=== PATIENT | male | born 1970 | race Caucasian/White ===

== ENCOUNTER → 2019-06-20 | Outpatient (CLI) | payer BC ==
--- NOTE | 2019-06-20 14:03 | CT ---
EXAMINATION TYPE: CT abdomen pelvis w con DATE OF EXAM: 06/20/2019 COMPARISON: None. HISTORY: Left lower quadrant pain and loose black stools x 1-[address] DLP: 780.2 mGycm, Automated Exposure Control for Dose Reduction was Utilized. CONTRAST: CT scan of the abdomen and pelvis is performed with oral and with IV Contrast, patient injected with 100 mL of Isovue M300. FINDINGS: LUNG BASES: No significant abnormality is appreciated. LIVER/GB: No significant abnormality is appreciated. PANCREAS: No significant abnormality is seen. SPLEEN: No significant abnormality is seen. ADRENALS: No significant abnormality is seen. KIDNEYS: No significant abnormality is seen. BOWEL: Oral contrast extends to the splenic flexure. There is no suspicious small or large bowel dila tation. Appendix within normal limits from the base of cecum extending inferiorly. At level of termin al ileum there is however suspicious [id number] concentric wall thickening causing mass effec t or narrowing of the lumen. There is suspicious adjacent adenopathy at this level, reference is blun benigno by 9 mm lymph node axial image 49. For reference additional 15 x 12 mm lymph node seen superior a nd central to this axial image 45. Mild fat stranding left lower quadrant/upper pelvis near junction of sigmoid and left colon with mild adjacent reactive adenopathy coronal image 33 for reference. No definitive diverticula at this level . No significant wall thickening noted. PROSTATE/SEMINAL VESICLES: No gross abnormality seen. LYMPH NODES: No greater than 1cm abdominal or pelvic lymph nodes are appreciated. There are addition al scattered prominent but subcentimeter lymph nodes throughout the mesentery seen best on coronal im ages. OSSEOUS STRUCTURES: No significant abnormality is seen. OTHER: No significant additional abnormality is seen. IMPRESSION: I suspect mild uncomplicated acute colitis left lower quadrant/upper pelvis near junction of left and sigmoid colon as there is mild fat stranding and tiny adjacent reactive adenopathy. Diff erential includes infectious and inflammatory etiologies. Of more concern is severe concentric wall t hickening or apple core type appearance of the proximal colon at level of the terminal ileum with marichuy picious adjacent adenopathy, neoplasm suspected. Follow-up colonoscopy strongly advised. A Yellow level critical message alert has been initiated for Vivek Barone DO via the [employer] Critical Results System on 06/20/2019 2:00 PM. This message alert has been sent to Vivek Raymo nd, DO via the preferences provided by the clinician for the receipt of Radiology Critical Findings. Message ID [id number].
== END | disposition home or self-care (01) ==
LOC: RADCTMAIN 11:53
PROVIDERS: ATTEND Family Medicine
DX: R10.32 Left lower quadrant pain (principal)
CPT/HCPCS: 74177; Q9967 ×2

== ENCOUNTER 2019-06-25 12:20 | Day surgery (SDC) | payer BC ==
[2019-06-21 15:30] VITALS: BMI 26.3
[~2019-06-25 12:20] MED LIST: LACTATED RINGERS 1,000 ML IV SCH
[2019-06-25 12:45] VITALS: RESP 16; TEMP 97.1
[2019-06-25] MEDS ORDERED: LIDOCAINE 1% INJ 10MG/ML (20 ML MDV) ONE (12:51)
[2019-06-25] MEDS ORDERED: PROPOFOL 10 MG/ML 20 ML VIAL IV ONE (12:51)
--- NOTE | 2019-06-25 12:58 | P.GSHP ---
History of Present Illness H&P Date: 06/25/19 Chief Complaint: Melanotic stools, change in bowel habits, abnormal CAT scan Patient here today for upper and lower endoscopy. Patient recently has had some diarrhea issues with black colored stools. He still is having diarrhea. He was having some vague abdominal pain which is improved. Otherwise feels well. He had labs which are not available to me at this time Past Medical History Additional Past Medical History / Comment(s): recent diarrhea for a few weeks & last 6 days black stools, recent abn. thyroid labs-will be having repeated soon, recent CT History of Any Multi-Drug Resistant Organisms: None Reported Additional Past Surgical History / Comment(s): wisdom teeth removed Past Anesthesia/Blood Transfusion Reactions: No Reported Reaction Smoking Status: Former smoker Medications and Allergies Home Medications Medication Instructions Recorded Confirmed Type Creatine 1 tab PO DAILY 06/21/19 History Multivitamins, Thera [Multivitamin 1 tab PO DAILY 06/21/19 06/21/19 History (formulary)] Allergies Allergy/AdvReac Type Severity Reaction Status Date / Time No Known Allergies Allergy Verified 06/21/19 15:01 Surgical - Exam Vital Signs Temp Pulse Resp BP Pulse Ox 97.1 F L 69 16 120/62 95 06/25/19 12:44 06/25/19 12:44 06/25/19 12:44 06/25/19 12:44 06/25/19 12:44 Physical exam: General: Well-developed, well-nourished HEENT: Normocephalic, sclerae nonicteric Abdomen: Nontender, nondistended Extremities: No edema Neuro: Alert and oriented Assessment and Plan (1) Change in bowel habits Narrative/Plan: Will proceed with upper and lower endoscopy. Current Visit: Yes Status: Acute Code(s): R19.4 - CHANGE IN BOWEL HABIT SNOMED Code(s): 233319335
--- NOTE | 2019-06-25 13:20 | P.PCN ---
Date of Procedure: 06/25/19 Procedure(s) Performed: PREOPERATIVE DIAGNOSIS: Melanotic stools, rectal bleeding, change in bowel habits POSTOPERATIVE DIAGNOSIS: Minimal gastritis, mild colitis PROCEDURE: 1. EGD 2. Colonoscopy with biopsy ANESTHESIA: MAC SURGEON: Quintin Steele M.D. SPECIMENS: Random colon ENDOSCOPIC PROCEDURE: The patient was on the endoscopy table in the left decubitus position. The Olympus gastroscope was inserted into the oropharynx and passed under direct visualization to the region of the third portion of the duodenum. From that point the scope was slowly withdrawn inspecting all surfaces carefully. There were no neoplastic inflammatory or polypoid lesions throughout the duodenum. The pylorus was widely patent. The stomach was carefully inspected. There was minimal gastritis. Retroflexion revealed a normal hiatus. The esophagus was then carefully examined. There were no neoplastic inflammatory or polypoid lesions throughout the visualized esophagus. The patient was kept on the endoscopy table in the left decubitus position. The Olympus colonoscope was inserted into the anus and passed under direct visualization to the base of the cecum. The appendiceal orifice was visualized. From that point the scope was slowly withdrawn inspecting all surfaces carefully. Attempts at intubating the ileocecal valve were unsuccessful. What I could visualize of the ileocecal valve itself however appeared free of inflammatory changes. There was noted to be mild inflammatory changes of the mucosa particularly in the right side of the colon although somewhat scattered throughout. No active bleeding was seen. Random biopsies were taken of the inflamed appearing mucosa. There were no neoplastic appearing changes throughout the colon. There was no visible diverticulosis. No polypoid lesions were seen throughout the colon. Digital rectal examination was normal. The patient was taken to the recovery room in stable condition per anesthesia guidelines. RECOMMENDATIONS: Await biopsy results
[2019-06-25 13:36] VITALS: PULSE 64
[2019-06-25 13:53] VITALS: BP 101/60
== END 2019-06-25 14:20 | disposition home or self-care (01) ==
LOC: ORWHC2ENDO 12:20
PROVIDERS: ATTEND Surgery
DX: K52.9 Noninfective gastroenteritis and colitis, unspecified (principal); K29.71 Gastritis, unspecified, with bleeding; Z98.890 Other specified postprocedural states; Z87.891 Personal history of nicotine dependence; Z79.899 Other long term (current) drug therapy
CPT/HCPCS: 88305; 45380; 43235; J2001; J2704

== ENCOUNTER → 2019-08-14 | Outpatient (CLI) | payer BC ==
--- NOTE | 2019-08-14 11:37 | CT ---
EXAMINATION TYPE: CT abdomen pelvis w con DATE OF EXAM: 08/14/2019 COMPARISON: 06/20/2019 HISTORY: Follow up scan per patient. CT DLP: 893 mGycm Automated exposure control for dose reduction was used. TECHNIQUE: Helical acquisition of images was performed from the lung bases through the pelvis. CONTRAST: Performed with Oral Contrast and with IV Contrast, patient injected with 100 mL of Isovue 300. FINDINGS: LUNG BASES: No significant abnormality is appreciated. LIVER/GB: Although there is slightly lower attenuation of the liver than the spleen and is not yet me et criteria for hepatic steatosis. No radiopaque calculi within the gallbladder. PANCREAS: Pancreas enhances homogeneously without pancreatic ductal dilatation. SPLEEN: No splenomegaly. ADRENALS: No nodules or thickening. KIDNEYS: Kidneys enhance and excrete symmetrically without hydronephrosis. FREE AIR: No free air is visualized. ADENOPATHY: No greater than 1 cm short axis lymph node in the abdomen nor pelvis. OSSEOUS STRUCTURES: Incidentally noted dysraphism of the sacrum. Very minimal degenerative disc dise ase of the lower thoracic spine. BOWEL: The previously seen mild fat stranding in the left lower quadrant near the junction of the si gmoid colon and descending colon with reactive adenopathy has resolved in the interim. The previousl y seen thickening of the terminal ileum and cecal with surrounding inflammatory fat stranding and simona ctive adenopathy has also resolved in the interim. Appendix is within normal limits. IMPRESSION: THE PREVIOUSLY SEEN TERMINAL ILEITIS AND ACUTE UNCOMPLICATED COLITIS APPEAR RESOLVED IN THE INTERIM. SUSPICION FOR UNDERLYING CROHN'S DISEASE. COLONOSCOPY REMAINS A RECOMMENDATION THIS WAS STRONGLY A DVISED ON THE PRIOR.
== END | disposition home or self-care (01) ==
LOC: RADCTMAIN 09:13
PROVIDERS: ATTEND Surgery
DX: K50.00 Crohn's disease of small intestine without complications (principal)
CPT/HCPCS: 74177; Q9967

== ENCOUNTER 2021-09-23 08:13 | Day surgery (SDC) | payer BC ==
[2021-09-22 10:16] VITALS: BMI 26.4
[~2021-09-23 08:13] MED LIST changes: +DEXAMETHASONE SOD PHOSPHATE 4 MG/ML 1 ML VIAL IV ONE; +LIDOCAINE 1% (10MG/ML) FOR IV START INTRADERMA PRN; +MOXIFLOXACIN HCL 0.5% DROPS 3 ML BTL OP PRN; +ONDANSETRON 4 MG/2 ML VIAL IVP ONE; +TETRACAINE 0.5% OPHTH (PF) DROPS 4 ML BTL OP PRN; +TIMOLOL 0.5% OPHTH DROPS 5 ML BTL OP PRN
[2021-09-23] MEDS: CYCLOPENTOLATE 1% OPHTH SOLN 2 ML BTL OP PRN ×3 (08:40→08:52)
[2021-09-23] MEDS: PHENYLEPHRINE 2.5% OPHTH DRP 2ML OP PRN ×3 (08:43→08:55)
[2021-09-23 08:47] VITALS: TEMP 97.2
[2021-09-23] MEDS ORDERED: MIDAZOLAM 2 MG/2 ML VIAL ONE (08:54)
[2021-09-23] MEDS ORDERED: fentaNYL (PF) 50 MCG/ML 2 ML AMP ONE (08:54)
[2021-09-23] MEDS ORDERED: EPINEPHrine (PF) 0.3 ML in BALANCED SALT IRRIG SOLN COMB2 500 ML IRRIGATION ONE (09:10)
[2021-09-23] MEDS ORDERED: DUOVISC KIT (GREEN BOX) INTRAOCULA ONE (09:11)
[2021-09-23] MEDS ORDERED: BALANCED SALT IRRIG SOLN COMB2 15 ML IRRIG.SOLN INTRAOCULA ONE (09:11)
[2021-09-23] MEDS ORDERED: LIDOCAINE 1% (PF) 10MG/ML VIAL MISCELLANE ONE (09:11)
--- NOTE | 2021-09-23 09:27 | P.OP ---
Date of Procedure: 09/23/21 Preoperative Diagnosis: NS Postoperative Diagnosis: same Procedure(s) Performed: PIOL, OD Implants: [id number] 11.50 x 2.00 Anesthesia: MAC Surgeon: Stuart Sanford Pathology: none sent Condition: stable Disposition: same day Indications for Procedure: blurry vision Operative Findings: no complications
[2021-09-23 09:49] VITALS: BP 118/78; PULSE 63; RESP 16
--- NOTE | 2021-09-24 10:10 | OP ---
OPERATIVE REPORT DATE OF SURGERY: September 23, 2021. PROCEDURE: Phacoemulsification cataract and intraocular lens implant of the right eye. PREOPERATIVE DIAGNOSES: Nuclear sclerosis. Regular astigmatism. POSTOPERATIVE DIAGNOSES: Nuclear sclerosis. Regular astigmatism. SURGEON: Dr. Stuart Sanford. ANESTHESIA: Topical. ESTIMATED BLOOD LOSS: None. SPECIMEN TAKEN: None. NARRATIVE: After obtaining appropriate consent, the patient was brought to the operating room. There he was asked to sit upright and the axes 0 and 180 degrees were identified and marked with a gentian diaz marker. He was then placed in the proper supine position, prepped and draped in the usual sterile manner and placed under cardiac monitoring. He was approached from his right temporal side and using previously acquired corneal topography information, the axis of 91 degrees was identified and marked with the [employer] axis marker. Then at the 11 o'clock position an MVR blade was used to create a paracentesis port. Through this opening, 1% Xylocaine MPF 50:50 mix with balanced salt solution was injected into the anterior chamber. This was followed by installation of Viscoat to stabilize the anterior chamber. At the 9 o'clock position, 2.5 mm keratome was used to create a self-sealing corneal flap incision. Through this opening, a cystotome was introduced to begin a continuous tear capsulorrhexis which was then completed using the [employer] forceps. Hydrodissection and hydrodelineation of the lens was accomplished in 12.21 seconds at 9% power. Additional Xylocaine MPF was instilled into the anterior chamber and the remaining cortical material was removed under irrigation and aspiration as well as careful polishing of the posterior capsule in capsule vacuum mode. Provisc was then used to stabilize the capsular bag and the [employer] MX 60ET 11.5 x 2 diopter posterior chamber intraocular lens was inserted into the capsular bag without difficulty. Following the removal of the viscoelastic, the lens was then oriented in the direction of the 91 degrees that was previously placed on the patient's cornea. The eye was then brought to normal intraocular pressure through the paracentesis port and the patient then received 2 drops of 0.5% timolol followed by 2 drops of 0.5% moxifloxacin. He was then lightly patched and shielded in the usual manner. There were no complications from the procedure. He tolerated the procedure well and was returned to outpatient recovery in good condition. MMODL / IJN: [id number] /
== END 2021-09-23 10:15 | disposition home or self-care (01) ==
LOC: OR 08:13
PROVIDERS: ATTEND Ophthalmology
DX: H25.11 Age-related nuclear cataract, right eye (principal); H25.13 Age-related nuclear cataract, bilateral; H52.221 Regular astigmatism, right eye; H35.413 Lattice degeneration of retina, bilateral; H18.603 Keratoconus, unspecified, bilateral; H52.13 Myopia, bilateral; H52.213 Irregular astigmatism, bilateral; Z83.3 Family history of diabetes mellitus; Z82.61 Family history of arthritis; Z82.49 Family history of ischemic heart disease and other diseases of the circulatory system; Z80.9 Family history of malignant neoplasm, unspecified; Z83.518 Family history of other specified eye disorder; Z98.890 Other specified postprocedural states
CPT/HCPCS: 66984; V2632; J2250; J0171; J3010; J2001

== ENCOUNTER → 2021-10-13 | Outpatient (CLI) | payer BC ==
--- NOTE | 2021-10-14 04:50 | XR ---
EXAMINATION TYPE: XR lumbar spine 3 views DATE OF EXAM: 10/13/2021 Comparison: None Clinical History: 51-year-old male M54.50 Lower Back Pain Findings: Vertebral body heights are preserved and alignment is maintained. 5 lumbar type vertebral bodies. Mil d degenerative disc space narrowing T11-T12. Remaining disc interspaces are largely maintained. Some straightening of the normal lumbar lordosis noted. Impression: Straightening of the normal lumbar lordosis could be positional or due to pain/muscle spasm. Mild deg enerative disc disease T11-T12. No vertebral compression collapse or malalignment.
== END | disposition home or self-care (01) ==
LOC: RADXRMAIN 12:42
PROVIDERS: ATTEND Nurse Practitioner Family
DX: M51.26 Other intervertebral disc displacement, lumbar region (principal)
CPT/HCPCS: 72100